=== PATIENT | female | born 1955 | race Caucasian/White ===

== ENCOUNTER 2020-09-10 16:50 | Observation (INO) | payer BC, SELFPAY ==
[2020-09-10 17:00] VITALS: BP 122/71; PULSE 72; RESP 17; TEMP 36.5; O2SAT 96
[2020-09-10] MEDS: methylPREDNISolone SOD SUCC 125 MG VIAL (17:07)
[2020-09-10] MEDS: diphenhydrAMINE HCl INJ 50 MG/ML VIAL (17:07)
[2020-09-10] MEDS: EPINEPHrine HCL INJ 1 MG/ML AMPUL (17:09)
[2020-09-10 17:30] VITALS: BP 179/75; PULSE 80; O2SAT 95
[2020-09-10 18:26] VITALS: BP 148/67; PULSE 77; O2SAT 94
--- NOTE | 2020-09-10 18:40 | PC.NURSE ---
PT REPORTS FEELING MUCH RELIEF, TONGUE STILL HAS LARGE AMOUNT OF SWELLING
[2020-09-10 19:24] VITALS: BP 149/72; PULSE 86; O2SAT 95
--- NOTE | 2020-09-10 19:30 | PC.NURSE ---
Patient admitted to room 203 from ER for observation for tongue swelling. Tongue is swollen upon admission, back of throat is able to be visualized but tonsils are occluded from view, airway is patent. Patient shows no signs of distress. Patient states that she has no known allergies to foods or medications. She states that this happened a few years ago buyt the cause was never determined. Patient also has hives to her right upper arm, right lateral chest, and right hip. Patient reports itching in these areas.
--- NOTE | 2020-09-10 19:30 | ADMGEN ---
This patient, Christy Joseph, was admitted to 2nd Floor Room 203-1. Patient/family oriented to hospital policies and general routines including ID bracelet, bed and alarms, visiting hours, pain management, procedures, bathroom and other care routines, personal items, smoking policy, room service/diet, and visiting hours. Information on how to activate the Rapid Response Team has been discussed. Patient/Family are encouraged to report perceived risks to care and to ask questions if they do not understand what they are told or what they should do.
[2020-09-10 20:09] VITALS: BP 148/77; PULSE 78; RESP 20; TEMP 36.5; O2SAT 96
[2020-09-10 20:38] VITALS: BMI 32.6
[2020-09-10 21:06] LABS: Glucose Point of Care 327 (65-105)
[2020-09-10] MEDS: EPINEPHrine HCL INJ 1 MG/ML AMPUL 0.3 MG IM (21:49)
[2020-09-10] MEDS: diphenhydrAMINE HCl INJ 50 MG/ML VIAL IV PUSH (23:23)
[2020-09-11] VITALS: BP 137/72; PULSE 100; RESP 20; TEMP 36.6; O2SAT 93
[2020-09-11] MEDS: methylPREDNISolone SOD SUCC 125 MG VIAL IV PUSH ×2 (01:50→09:47)
--- NOTE | 2020-09-11 02:07 | PC.NURSE ---
Patients tongue appears to be slightly less swollen. The hives on he right hip and right lateral chest seem to have resolved and the the hive on the right arm appears just slightly pink, patient denies itching at this time.
--- NOTE | 2020-09-11 02:10 | PC.NURSE ---
Spoke to Dr. Stafford regarding pt's blood sugar; New orders received and noted.
[2020-09-11] MEDS: EPINEPHrine HCL INJ 1 MG/ML AMPUL 0.3 MG IV PUSH ×2 (02:45→07:19)
[2020-09-11 02:48] LABS: Glucose Point of Care 373 (65-105)
--- NOTE | 2020-09-11 03:06 | PC.NURSE ---
IV push Epinephrine given per order. Patient reported feeling strange after epi was injected. Vital signs were obtained: pulse 92, BP 188/83, SPO2 93% on room air. Public Accountant explained how epinephrine worked to the patient and freelance writer sat with the patient for a while. After approximately 5 minutes the patient states that she felt better, but stated that she did not want to receive any more epinephrine. Patient has call light within reach.
--- NOTE | 2020-09-11 03:20 | PC.NURSE ---
Patients speech noted to be clearer, science writer is able to visualize uvula at this time.
--- NOTE | 2020-09-11 05:19 | ED.URI ---
HPI - URI/Sore Throat General Chief Complaint: Allergic Reaction Stated Complaint: Allergic reaction tounge swollen Source: patient and family Mode of arrival: ambulatory Limitations: clinical condition History of Present Illness HPI Narrative: Patient comes in with extreme swelling of tongue. This started at noon today and has gotten worse as the day has gone on. Benadryl taken at home has not helped. Pertinent past history: other (history of angioedema) Consistency: constant Severity: severe Able to tolerate fluids by mouth: Yes Exacerbating factors: nothing Relieving factors: nothing Associated symptoms: denies other symptoms and other (no shortness of breath) Treatments prior to arrival: other (benadryl) Related Data Home Medications Medication Instructions Recorded Confirmed clopidogrel 75 mg PO DAILY 09/10/20 09/10/20 hydrochlorothiazide 25 mg PO DAILY 09/10/20 09/10/20 lovastatin 40 mg PO DAILY 09/10/20 09/10/20 metformin 1,000 mg PO BID 09/10/20 09/10/20 Allergies Allergy/AdvReac Type Severity Reaction Status Date / Time No Known Allergies Allergy Verified 09/10/20 17:22 Review of Systems Review of Systems: All systems reviewed & are unremarkable except as noted in HPI and below Constitutional: Constitutional: Reports no additional constitutional complaints Eyes: Eyes: Reports no additional eye complaints ENT: Reports system reviewed and no additional complaints, except as documented Cardiovascular: Cardiovascular: Reports no additional cardiovascular complaints Respiratory: Respiratory: Reports no additional respiratory complaints Gastrointestinal: Gastrointestinal: Reports no additional gastrointestinal complaints Genitourinary: Genitourinary: Reports no additional female genitourinary complaints Musculoskeletal: Musculoskeletal: Reports no additional musculoskeletal complaints Integumentary/Breasts: Skin/Breast: Reports system reviewed and no additional complaints, except as docu Neurologic: Reports system reviewed and no additional complaints, except as documented Psychiatric: Psychiatric: Reports no additional psychiatric complaints Endocrine: Endocrine: Reports no additional endocrine complaints Hematologic/Lymphatic: Hematologic/Lymphatic: Reports no additional hematologic/lymphatic complaints Allergic/Immunologic: Allergic/Immunologic: Reports no additional allergic/immunologic complaints [facility] Past Medical History Medical History (Updated 09/11/20 @ 05:31 by Carl Stafford MD) Angioedema CVA (cerebral vascular accident) Surgical History Surgical History No significant past surgical history Family History Family History Father Heart disease Social History Social History Smoking packs per day: 2 Smoking cigarettes per day: 40.0 Years smoked: 5 Smoking pack-years: 10.00 Smoking status: Former smoker Tobacco type: cigarettes Second hand tobacco smoke exposure: Yes Alcohol intake: never Substance use: never Gender identity (if verbalized by the patient): Female Spiritual care concerns: No Exam Narrative: Exam Narrative: Tongue is extremely swelled. No shortness of breath or difficulty breathing. Const: General: no acute distress and ill appearing Orientation/consciousness: patient oriented x3 HENMT: Ears: TM's normal bilaterally General nose exam: Normal nares present Other: tongue hugely swollen Eyes: Conjunctivae: conjunctivae normal Neck: Neck: normal visual inspection Chest: Chest palpation & inspection: normal inspection of the chest Resp: Effort & Inspection: normal respiratory effort Auscultation: clear to auscultation bilaterally Cardio: Rate: regular rate Rhythm: regular rhythm GI: GI Palp: Yes Soft to palpation Auscultation: normal bowel sounds Skin: General skin e
--- NOTE | 2020-09-11 05:50 | PC.NURSE ---
Dr. Stafford here to see pt; new orders received and noted.
--- NOTE | 2020-09-11 07:33 | PM.SD ---
Same Day Admit/Disch: HPI History of Present Illness Chief complaint: Allergic reaction tounge swollen Narrative: Christy Joseph is a 65 year old female who came to the hospital yesterday and admitted for observation due to swelling of her tongue. Patient did take some Benadryl at home however that did not seem to help. Patient was given epinephrine steroids in the ER. This morning patient states her tongue is almost back to normal but the right side is still a little swollen. Patient denies any difficulty with breathing no difficulty with swallowing. Patient denies any new medication or changes in dietary habits. Patient meets this happened approximately 2 years ago and did not know what triggered her symptoms at that time. [facility] Past Medical History Medical History Angioedema CVA (cerebral vascular accident) Surgical History Surgical History No significant past surgical history Family History Family History Father Heart disease Social History Social History Smoking packs per day: 2 Smoking cigarettes per day: 40.0 Years smoked: 5 Smoking pack-years: 10.00 Smoking status: Former smoker Tobacco type: cigarettes Second hand tobacco smoke exposure: Yes Alcohol intake: never Substance use: never Gender identity (if verbalized by the patient): Female Spiritual care concerns: No Same Day Admit/Disch: Med Pre-admit Medications Home Medications Medication Instructions Recorded Confirmed Type clopidogrel 75 mg PO DAILY 09/10/20 09/10/20 History hydrochlorothiazide 25 mg PO DAILY 09/10/20 09/10/20 History lovastatin 40 mg PO DAILY 09/10/20 09/10/20 History metformin 1,000 mg PO BID 09/10/20 09/10/20 History Exam Const: General: cooperative, comfortable, no acute distress, alert, awake and Physically active Nutritional Appearance: overweight HENMT: Mouth: Yes Normal oral and palatal mucosa present Mouth/tongue images: 1. slight swelling, no airway compromise Resp: Effort & Inspection: normal respiratory effort Auscultation: clear to auscultation bilaterally Cardio: Rate: regular rate Rhythm: regular rhythm Heart sounds: S1 normal heart sound present and S2 normal heart sound present Extrem: General: no pedal edema DS: Data Data Completed and Pending Labs on day of discharge: Labs from last 24 hours 09/11/20 09/10/20 02:45 21:02 POC Capillary Glucose [id number] DS: Summary Hospital Course Hospital Course: After receiving Epinephrine, Benadryl, Steroids the Pt's tongue swelling reduced. She is now able to swallow and does not have any airway compromise. Time Spent with Patient Time attestation: Total time spent providing and/or coordinating discharge services: < 30 min DS: Admitting Diagnosis Admitting Diagnosis Admitting Diagnosis: Angioedema DS: Discharge Diagnosis Discharge Diagnosis (1) Angioedema: Code(s): T78.3XXA - Angioneurotic edema, initial encounter Status: Acute Assessment and Plan: Pt's tongue us much reduced back to normal size at this moment. Discussed with patient use of Benadryl in the event this happens again. Patient did have this happen approximately 2 years ago. She does not know what may have triggered the swelling. Discharge Plan Discharge Attending physician on discharge: Rosendo Mejia Discharging Clinician: Abel Page Anticipated Discharge Date/Time: 09/11/20 11:00 Patient Disposition: Home, Self-Care Activity: as tolerated Diet: heart healthy Discharge Instructions: Follow up with PCP within a week. Take 2 Benadry 50 mg in the event your tongue swells up again. Patient Instructions: Angioedema (GEN) Stand Alone Forms: General Discharge Information
[2020-09-11 08:00] VITALS: BP 136/77; PULSE 88; RESP 18; TEMP 36.4; O2SAT 94
[2020-09-11 08:15] LABS: Glucose Point of Care 368 (65-105)
--- NOTE | 2020-09-11 20:00 | PM.EVENT ---
Event Note Event Note Event Note: I have examined the patient and reviewed the chart. I discussed the patient's care with Mercedes Page APN and agree with his assessment and plan.
--- NOTE | 2020-09-23 12:18 | PC.NURSE ---
Unable to contact for discharge call back.
== END 2020-09-11 11:20 | disposition home or self-care (01) ==
LOC: CHSED 16:58 → CHS2ND 09-11 10:22
PROVIDERS: Admitting Provider Emergency Medicine; Visit Provider Emergency Medicine
DX: T78.3XXA Angioneurotic edema, initial encounter (principal); Z86.73 Personal history of transient ischemic attack (TIA), and cerebral infarction without residual deficits
CPT/HCPCS: 96372; 96374; 96375; 96376; 99285; G0378; G0379; J0171; J1200; J2930